=== PATIENT | male | born 1965 | race Caucasian/White ===

== ENCOUNTER 2019-02-19 07:01 | Day surgery (SDC) | payer BC, OTHER ==
[2019-02-19] MEDS ORDERED: PROPOFOL 10 MG/ML VIAL IV ONE (07:02)
[2019-02-19] MEDS ORDERED: LIDOCAINE 2% MDV (20MG/ML) 20ML VIAL IV ONE (07:02)
--- NOTE | 2019-02-20 13:00 | Operative Note ---
OPERATION: COLONOSCOPY. PREOPERATIVE DIAGNOSIS: Colon cancer screening, average risk, initial exam. POSTOPERATIVE DIAGNOSIS: Colonic diverticulosis, otherwise normal exam. SPECIMENS: None. COMPLICATIONS: None. PREPARATION QUALITY: Good. ESTIMATED BLOOD LOSS: None. PROCEDURE: After informed consent was obtained from the patient, he was placed in the left lateral decubitus position in the endoscopy suite, sedated and monitored by the department of anesthesia. Digital rectal exam was unremarkable. A well-lubricated [id number] colonoscope was inserted into the rectum and advanced to the cecum. The cecum, cecal bulb, ileocecal valve, and appendiceal orifice were inspected and were unremarkable. The preparation quality was good. The ascending colon, transverse colon, descending colon, sigmoid colon, and rectum were carefully inspected. There were scattered small diverticula throughout the length of the colon, particularly in the ascending, descending, and sigmoid colon. The rectum was unremarkable in forward and J-turn views. The endoscope was straightened, the rectal ampulla deflated, and the endoscope was removed. RECOMMENDATIONS: I would suggest the patient follow a high-fiber diet. He should undergo a repeat exam in 10 years or sooner should symptoms warrant. As always, thank you for allowing me to participate in the healthcare of your patients. BAM
== END 2019-02-19 10:00 | disposition home or self-care (01) ==
LOC: HOP 07:01
PROVIDERS: ATTEND Internal Medicine Gastroenterology
DX: Z12.11 Encounter for screening for malignant neoplasm of colon (principal); K57.30 Diverticulosis of large intestine without perforation or abscess without bleeding; M19.90 Unspecified osteoarthritis, unspecified site
CPT/HCPCS: 00812; G0121